=== PATIENT | male | born 2000 | race African-American/Black ===

== ENCOUNTER 2022-07-28 22:55 | Emergency (ER) | payer SELFPAY | END 2022-07-29 02:35 | disposition home or self-care (01) | LOC: CSHERS 22:55 | DX: M79.641 Pain in right hand (principal) ==

== ENCOUNTER 2022-08-21 13:48 | Emergency (ER) | payer SELFPAY | END 2022-08-21 15:31 | disposition home or self-care (01) | LOC: CSHERS 13:48 | DX: S61.411A Laceration without foreign body of right hand, initial encounter (principal); M25.512 Pain in left shoulder ==

== ENCOUNTER 2022-10-14 18:22 | Emergency (ER) | payer SELFPAY ==
[2022-10-14] MEDS ORDERED: Divalproex Sodium DR 500 MG TAB ONE (19:14)
== END 2022-10-14 19:17 | disposition home or self-care (01) ==
LOC: CSHERS 18:22
DX: Z76.0 Encounter for issue of repeat prescription (principal)
CPT/HCPCS: 99284

== ENCOUNTER 2022-11-21 14:59 | Emergency (ER) | payer SELFPAY ==
[2022-11-21] MEDS ORDERED: Divalproex Sodium DR 500 MG TAB ONE (17:07)
== END 2022-11-21 17:37 | disposition home or self-care (01) ==
LOC: CSHERS 14:59
DX: G40.909 Epilepsy, unspecified, not intractable, without status epilepticus (principal)
CPT/HCPCS: 99283

== ENCOUNTER 2022-12-29 18:33 | Emergency (ER) | payer SELFPAY ==
[2022-12-29] MEDS ORDERED: Divalproex Sodium DR 500 MG TAB ONE (22:27)
== END 2022-12-29 19:34 | disposition home or self-care (01) ==
LOC: CSHERS 18:33
DX: R56.9 Unspecified convulsions (principal); Z76.0 Encounter for issue of repeat prescription
CPT/HCPCS: 99281

== ENCOUNTER 2022-12-29 21:26 | Emergency (ER) | payer SELFPAY | END 2022-12-29 22:30 | disposition home or self-care (01) | LOC: CSHERS 21:26 | DX: Z91.148 Patient's other noncompliance with medication regimen for other reason (principal) | CPT/HCPCS: 99282 ==

== ENCOUNTER 2024-05-20 15:24 | Emergency (ER) | payer OTHER | END 2024-05-20 16:30 | disposition home or self-care (01) | LOC: CSHERS 15:24 | DX: Z76.0 Encounter for issue of repeat prescription (principal); Z86.69 Personal history of other diseases of the nervous system and sense organs | CPT/HCPCS: 99281 ==